=== PATIENT | male | born 1960 | race Caucasian/White ===

== ENCOUNTER 2018-07-19 12:34 | Emergency (ER) | payer SELFPAY ==
[~2018-07-19] VITALS: Ht 165.1 cm; Wt 81.6 kg
[2018-07-19 13:06] VITALS: Ht 165.1 cm; Wt 81.6 kg
[2018-07-19 16:42] VITALS: BP 112/78
== END 2018-07-19 16:42 | disposition home or self-care (01) ==
LOC: ED 12:34
DX: R40.4 Transient alteration of awareness (principal); Z98.890 Other specified postprocedural states

== ENCOUNTER 2018-08-05 20:30 | Inpatient (IN) | payer MEDICAID ==
[~2018-08-05] VITALS: Ht 165.1 cm; Wt 90.7 kg
[2018-08-05 21:59] LABS: BASOPHIL % 0.3 % (0-2); PLATELET COUNT 208 x10^3mcL (130-400); RED CELL DISTRIBUTION WIDTH 13.1 % (11.5-14.5)
[2018-08-05 22:08] LABS: CARBON DIOXIDE 27.5 mmol/L (21-32); CHLORIDE SERUM 104 mmol/L (98-107); GFR1 > 60 mL/min; GLUCOSE SERUM 106 mg/dL (74-106); POTASSIUM SERUM 3.1 mmol/L (3.5-5.1); SODIUM SERUM 141 mmol/L (136-145)
[2018-08-05 22:21] LABS: ALKALINE PHOSPHATASE 121 U/L (46-116); ALT/SGPT 22 U/L (16-63); AST/SGOT 32 U/L (15-37); FREE T4 0.93 ng/dL (0.76-1.46); TOTAL PROTEIN, SERUM 7.5 g/dL (6.4-8.2)
[2018-08-05 22:22] LABS: ALBUMIN 3.3 g/dL (3.4-5.0)
[2018-08-05 22:41] LABS: microscopic required? NO
[2018-08-05 22:50] LABS: UA SPECIFIC GRAVITY <=1.005 (1.005-1.035); urine erythrocyte NEGATIVE (NEGATIVE)
[2018-08-05 23:04] LABS: AMPHETAMINE QUAL UR NONE DETECTED (See below)
[2018-08-05 23:52] LABS: MAGNESIUM 2.1 mg/dL (1.8-2.4); PHOSPHOROUS 3.6 mg/dL (2.5-4.9)
[2018-08-05 23:56] LABS: CHOLESTEROL/HDL RATIO 2.2
[2018-08-06 00:08] VITALS: BP 139/94
[2018-08-06 00:11] VITALS: Ht 165.1 cm; Wt 90.7 kg
[2018-08-06 06:27] VITALS: BP 147/88
[2018-08-06 06:55] LABS: CALCIUM 7.8 mg/dL (8.5-10.1); CARBON DIOXIDE 22.6 mmol/L (21-32); CHLORIDE SERUM 108 mmol/L (98-107); CREATININE SERUM 0.8 mg/dL (0.7-1.3); GFR1 > 60 mL/min; GLUCOSE SERUM 91 mg/dL (74-106); POTASSIUM SERUM 3.4 mmol/L (3.5-5.1); SODIUM SERUM 140 mmol/L (136-145)
[2018-08-06 07:23] LABS: BASOPHIL % 0.4 % (0-2); PLATELET COUNT 194 x10^3mcL (130-400); RED CELL DISTRIBUTION WIDTH 13.2 % (11.5-14.5)
[2018-08-06 08:06] VITALS: BP 158/92
[2018-08-06 12:03] VITALS: BP 149/108
[2018-08-06 16:33] VITALS: BP 124/77
[2018-08-06 20:57] VITALS: BP 121/68
[2018-08-07 05:28] VITALS: BP 149/85
[2018-08-07 06:31] LABS: CALCIUM 8.4 mg/dL (8.5-10.1); CARBON DIOXIDE 26.2 mmol/L (21-32); CHLORIDE SERUM 107 mmol/L (98-107); GFR1 > 60 mL/min; GLUCOSE SERUM 94 mg/dL (74-106); MAGNESIUM 2.1 mg/dL (1.8-2.4); PHOSPHOROUS 2.6 mg/dL (2.5-4.9); POTASSIUM SERUM 3.8 mmol/L (3.5-5.1); SODIUM SERUM 141 mmol/L (136-145)
[2018-08-07 06:39] LABS: BASOPHIL % 0.3 % (0-2); PLATELET COUNT 213 x10^3mcL (130-400); RED CELL DISTRIBUTION WIDTH 12.5 % (11.5-14.5)
[2018-08-07 07:54] VITALS: BP 159/96
[2018-08-07 12:54] VITALS: BP 150/93
[2018-08-07 16:21] VITALS: BP 147/99
[2018-08-07 21:00] VITALS: BP 145/90
[2018-08-08 06:36] LABS: BASOPHIL % 0.3 % (0-2); PLATELET COUNT 190 x10^3mcL (130-400); RED CELL DISTRIBUTION WIDTH 12.9 % (11.5-14.5)
[2018-08-08 06:54] LABS: CALCIUM 8.5 mg/dL (8.5-10.1); CHLORIDE SERUM 101 mmol/L (98-107); CREATININE SERUM 0.9 mg/dL (0.7-1.3); GFR1 > 60 mL/min; GLUCOSE SERUM 96 mg/dL (74-106); PHOSPHOROUS 2.5 mg/dL (2.5-4.9); POTASSIUM SERUM 3.8 mmol/L (3.5-5.1); SODIUM SERUM 138 mmol/L (136-145)
[2018-08-08 07:36] VITALS: BP 128/81
[2018-08-08 12:07] VITALS: BP 130/78
[2018-08-08 16:02] VITALS: BP 133/87
[2018-08-08 21:14] VITALS: BP 126/82
[2018-08-09 05:13] VITALS: BP 120/74
[2018-08-09 08:39] VITALS: BP 118/81
[2018-08-09 13:05] VITALS: BP 121/73
[2018-08-09] MEDS ORDERED: LIPITOR80 MG PO (13:34)
[2018-08-09] MEDS ORDERED: CLOPIDOGREL75 M1 PO (13:34)
[2018-08-09] MEDS ORDERED: ECO81 PO (13:35)
[2018-08-09] MEDS ORDERED: METOPROLOL TART25 M1 PO (13:35)
[2018-08-09 17:43] VITALS: BP 136/91
[2018-08-09 20:14] VITALS: BP 117/79
[2018-08-10 06:46] LABS: BASOPHIL % 0.2 % (0-2); PLATELET COUNT 189 x10^3mcL (130-400); RED CELL DISTRIBUTION WIDTH 13.7 % (11.5-14.5)
[2018-08-10 06:52] LABS: CALCIUM 8.9 mg/dL (8.5-10.1); CARBON DIOXIDE 29.1 mmol/L (21-32); CHLORIDE SERUM 105 mmol/L (98-107); CREATININE SERUM 1.2 mg/dL (0.7-1.3); GFR1 > 60 mL/min; GLUCOSE SERUM 117 mg/dL (74-106); MAGNESIUM 2.3 mg/dL (1.8-2.4); PHOSPHOROUS 2.8 mg/dL (2.5-4.9); POTASSIUM SERUM 3.9 mmol/L (3.5-5.1); SODIUM SERUM 140 mmol/L (136-145)
[2018-08-10 06:55] VITALS: BP 124/79
[2018-08-10 08:37] VITALS: BP 117/76
[2018-08-10 14:32] VITALS: BP 117/76
[2018-08-10 16:17] VITALS: BP 103/72
[2018-08-10 20:27] VITALS: BP 114/73
[2018-08-11 04:58] VITALS: BP 116/79
[2018-08-11 09:04] VITALS: BP 109/76
[2018-08-11 16:15] VITALS: BP 107/74
[2018-08-11 20:49] VITALS: BP 111/76
[2018-08-12 05:24] VITALS: BP 116/72
[2018-08-12 09:48] VITALS: BP 111/84
[2018-08-12 19:00] VITALS: BP 123/81
[2018-08-12 21:12] VITALS: BP 103/73
[2018-08-13 05:05] VITALS: BP 101/63
[2018-08-13 08:56] VITALS: BP 109/73
[2018-08-13 16:16] VITALS: BP 118/81
[2018-08-13 22:03] VITALS: BP 117/81
[2018-08-14 06:18] VITALS: BP 118/80
[2018-08-14 06:37] VITALS: BP 121/76
[2018-08-14 08:35] VITALS: BP 125/80
[2018-08-14 11:46] LABS: BASOPHIL % 0.6 % (0-2); PLATELET COUNT 247 x10^3mcL (130-400); RED CELL DISTRIBUTION WIDTH 12.7 % (11.5-14.5)
[2018-08-14 11:58] LABS: CALCIUM 8.5 mg/dL (8.5-10.1); CHLORIDE SERUM 107 mmol/L (98-107); CREATININE SERUM 1.1 mg/dL (0.7-1.3); GFR1 > 60 mL/min; GLUCOSE SERUM 119 mg/dL (74-106); MAGNESIUM 2.1 mg/dL (1.8-2.4); PHOSPHOROUS 3.5 mg/dL (2.5-4.9); POTASSIUM SERUM 3.8 mmol/L (3.5-5.1); SODIUM SERUM 140 mmol/L (136-145)
[2018-08-14 17:15] VITALS: BP 118/74
[2018-08-14 20:58] VITALS: BP 101/71
[2018-08-15 05:19] VITALS: BP 126/79
[2018-08-15 17:25] VITALS: BP 113/74
[2018-08-15 20:34] VITALS: BP 127/75
[2018-08-16 05:22] VITALS: BP 105/44
[2018-08-16 05:25] VITALS: BP 113/79
[2018-08-16 08:18] VITALS: BP 139/91
[2018-08-16 16:15] VITALS: BP 102/68
[2018-08-16 20:14] VITALS: BP 121/86
[2018-08-17 05:15] VITALS: BP 122/84
[2018-08-17 08:13] VITALS: BP 142/96
[2018-08-17 16:40] VITALS: BP 102/66
[2018-08-17 20:34] VITALS: BP 100/66
[2018-08-18 05:42] VITALS: BP 113/70
[2018-08-18 08:30] VITALS: BP 105/80
[2018-08-18 17:10] VITALS: BP 120/72
[2018-08-18 21:39] VITALS: BP 111/70
[2018-08-19 05:46] VITALS: BP 120/77
[2018-08-19 08:39] VITALS: BP 117/78
[2018-08-19 16:50] VITALS: BP 127/79
[2018-08-19 20:42] VITALS: BP 100/71
[2018-08-20 04:46] VITALS: BP 127/79
[2018-08-20 08:28] VITALS: BP 105/77
[2018-08-20 16:30] VITALS: BP 128/85
[2018-08-20 19:43] VITALS: BP 124/77
[2018-08-21 04:45] VITALS: BP 115/72
[2018-08-21 09:12] VITALS: BP 115/75
[2018-08-21 17:26] VITALS: BP 112/73
[2018-08-21 20:21] VITALS: BP 103/67
[2018-08-22 04:38] VITALS: BP 104/71
[2018-08-22 07:45] VITALS: BP 118/72
[2018-08-22 11:50] VITALS: BP 108/69
[2018-08-22 16:48] VITALS: BP 110/68
[2018-08-22 20:49] VITALS: BP 101/72
[2018-08-23 05:06] VITALS: BP 124/83
[2018-08-23 09:04] VITALS: BP 115/87
[2018-08-23 17:35] VITALS: BP 99/66
[2018-08-23 20:38] VITALS: BP 103/70
[2018-08-24 06:00] VITALS: BP 129/80
[2018-08-24 09:20] VITALS: BP 112/73
[2018-08-24 16:36] VITALS: BP 118/77
[2018-08-24 21:33] VITALS: BP 137/79
[2018-08-25] VITALS (8 sets, daily range): BP systolic 106–137; BP diastolic 51–81
[2018-08-26 04:48] VITALS: BP 115/77
[2018-08-26 08:32] VITALS: BP 107/67
[2018-08-26 13:31] VITALS: BP 114/69
[2018-08-26 16:54] VITALS: BP 109/64
[2018-08-26 21:38] VITALS: BP 131/70
[2018-08-27 05:40] VITALS: BP 114/75
[2018-08-27 08:54] VITALS: BP 117/80
[2018-08-27 17:48] VITALS: BP 116/71
[2018-08-27 20:44] VITALS: BP 149/77
[2018-08-28 04:53] VITALS: BP 122/84
[2018-08-28 08:12] VITALS: BP 160/91
[2018-08-28 17:30] VITALS: BP 123/84
[2018-08-28 20:20] VITALS: BP 117/74
[2018-08-29 05:29] VITALS: BP 137/84
[2018-08-29 08:43] VITALS: BP 129/92
[2018-08-29 16:42] VITALS: BP 129/76
[2018-08-29 20:55] VITALS: BP 126/79
[2018-08-30 05:13] VITALS: BP 106/70
[2018-08-30 08:20] VITALS: BP 130/80
[2018-08-30 16:13] VITALS: BP 114/79
[2018-08-30 20:11] VITALS: BP 126/76
[2018-08-31 04:32] VITALS: BP 123/84
[2018-08-31 09:40] VITALS: BP 111/76
[2018-08-31 17:30] VITALS: BP 127/73
[2018-08-31 22:56] VITALS: BP 131/83
[2018-09-01 04:46] VITALS: BP 114/78
[2018-09-01 09:53] VITALS: BP 127/86
[2018-09-01 16:58] VITALS: BP 125/75
[2018-09-01 21:34] VITALS: BP 113/82
[2018-09-02 05:37] VITALS: BP 136/79
[2018-09-02 10:26] VITALS: BP 125/80
[2018-09-02 17:14] VITALS: BP 126/72; BP 135/60
[2018-09-02 21:10] VITALS: BP 115/80
[2018-09-03 04:51] VITALS: BP 129/92
[2018-09-03 08:33] VITALS: BP 133/90
[2018-09-03 12:20] VITALS: BP 139/88
[2018-09-03 16:08] VITALS: BP 122/80
[2018-09-03 21:29] VITALS: BP 136/86
[2018-09-04 06:05] VITALS: BP 128/82
[2018-09-04 08:05] VITALS: BP 143/90
[2018-09-04 13:14] VITALS: BP 130/84
[2018-09-04 16:27] VITALS: BP 125/89
[2018-09-04 20:12] VITALS: BP 112/78
[2018-09-05 06:13] VITALS: BP 134/73
[2018-09-05 10:27] VITALS: BP 123/78
[2018-09-05 16:30] VITALS: BP 115/75
[2018-09-05 21:14] VITALS: BP 114/72
[2018-09-06 05:57] VITALS: BP 121/79
[2018-09-06 08:30] VITALS: BP 126/83
[2018-09-06 17:15] VITALS: BP 118/76
[2018-09-06 20:43] VITALS: BP 113/72
[2018-09-07 05:24] VITALS: BP 123/77
[2018-09-07 08:50] VITALS: BP 123/81
[2018-09-07 16:26] VITALS: BP 117/77
[2018-09-07 20:49] VITALS: BP 119/85
[2018-09-08 04:43] VITALS: BP 132/84
[2018-09-08 08:14] VITALS: BP 129/68
[2018-09-08 09:10] VITALS: BP 112/78
[2018-09-08 16:53] VITALS: BP 114/73
[2018-09-08 21:36] VITALS: BP 142/86
[2018-09-09 05:30] VITALS: BP 139/97
[2018-09-09 08:06] VITALS: BP 136/87
[2018-09-09 12:54] VITALS: BP 116/80
[2018-09-09 18:23] VITALS: BP 135/82
[2018-09-09 21:04] VITALS: BP 113/73
[2018-09-10 05:20] VITALS: BP 133/91
[2018-09-10 09:53] VITALS: BP 121/87
[2018-09-10 17:00] VITALS: BP 126/80
[2018-09-10 21:37] VITALS: BP 116/81
[2018-09-11 05:41] VITALS: BP 120/78
[2018-09-11 08:56] VITALS: BP 117/81
[2018-09-11 17:53] VITALS: BP 122/80
[2018-09-11 20:14] VITALS: BP 112/73
[2018-09-12 04:50] VITALS: BP 120/75
[2018-09-12 09:10] VITALS: BP 123/80
[2018-09-12 16:45] VITALS: BP 121/80
[2018-09-12 20:55] VITALS: BP 118/78
[2018-09-13 04:40] VITALS: BP 132/80
[2018-09-13 09:04] VITALS: BP 129/89
[2018-09-13 16:30] VITALS: BP 118/81
[2018-09-13 21:37] VITALS: BP 132/76
[2018-09-14 05:24] VITALS: BP 140/84
[2018-09-14 09:10] VITALS: BP 121/82
[2018-09-14 16:46] VITALS: BP 116/71
[2018-09-14 21:02] VITALS: BP 136/75
[2018-09-15 05:29] VITALS: BP 130/74
[2018-09-15 09:36] VITALS: BP 116/73
[2018-09-15 17:34] VITALS: BP 109/74
[2018-09-15 21:03] VITALS: BP 120/82
[2018-09-16 05:03] VITALS: BP 124/80
[2018-09-16 10:03] VITALS: BP 125/80
[2018-09-16 17:39] VITALS: BP 113/74
[2018-09-16 20:09] VITALS: BP 113/78
[2018-09-17 05:42] VITALS: BP 115/79
[2018-09-17 08:16] VITALS: BP 114/76
[2018-09-17 17:00] VITALS: BP 107/73
[2018-09-17 21:27] VITALS: BP 131/74
[2018-09-18 05:24] VITALS: BP 107/73
[2018-09-18 10:53] VITALS: BP 101/69
[2018-09-18 18:57] VITALS: BP 119/79
[2018-09-18 21:01] VITALS: BP 126/83
[2018-09-19 06:19] VITALS: BP 124/86
[2018-09-19 08:13] VITALS: BP 112/80
[2018-09-19 12:31] VITALS: BP 120/74
[2018-09-19 16:43] VITALS: BP 115/76
[2018-09-19 21:20] VITALS: BP 125/72
[2018-09-20 05:51] VITALS: BP 130/81
[2018-09-20 09:29] VITALS: BP 112/81
[2018-09-20 17:37] VITALS: BP 122/79
[2018-09-20 20:45] VITALS: BP 112/71
[2018-09-21 04:55] VITALS: BP 117/88
[2018-09-21 09:23] VITALS: BP 127/88
[2018-09-21 17:04] VITALS: BP 113/72
[2018-09-21 20:58] VITALS: BP 119/81
[2018-09-22 06:01] VITALS: BP 126/88
[2018-09-22 10:18] VITALS: BP 120/83
[2018-09-22 16:53] VITALS: BP 93/53
[2018-09-22 20:35] VITALS: BP 123/81
[2018-09-23 05:29] VITALS: BP 123/87
[2018-09-23 09:34] VITALS: BP 117/79
[2018-09-23 17:48] VITALS: BP 117/85
[2018-09-23 20:42] VITALS: BP 106/72
[2018-09-24 05:13] VITALS: BP 124/76
[2018-09-24 08:30] VITALS: BP 107/67
[2018-09-24 17:14] VITALS: BP 112/76
[2018-09-24 21:13] VITALS: BP 120/83
[2018-09-25 04:22] VITALS: BP 110/74
[2018-09-25 08:32] VITALS: BP 123/89
[2018-09-25 17:00] VITALS: BP 123/84
[2018-09-25 21:31] VITALS: BP 119/73
[2018-09-26 06:11] VITALS: BP 119/80
[2018-09-26 10:05] VITALS: BP 123/84
[2018-09-26 17:06] VITALS: BP 117/78
[2018-09-26 20:55] VITALS: BP 116/73
[2018-09-27 05:07] VITALS: BP 126/83
[2018-09-27 08:45] VITALS: BP 130/88
[2018-09-27 17:49] VITALS: BP 112/79
[2018-09-27 21:14] VITALS: BP 112/75
[2018-09-28 05:52] VITALS: BP 136/89
[2018-09-28 08:45] VITALS: BP 121/82
[2018-09-28 18:48] VITALS: BP 121/83
[2018-09-28 21:33] VITALS: BP 107/72
[2018-09-29 05:19] VITALS: BP 113/89
[2018-09-29 07:28] VITALS: BP 126/81
[2018-09-29 17:25] VITALS: BP 101/75
[2018-09-29 20:32] VITALS: BP 111/71
[2018-09-30 05:41] VITALS: BP 122/84
[2018-09-30 09:49] VITALS: BP 116/81
[2018-09-30 13:26] VITALS: BP 152/84
[2018-09-30 18:09] VITALS: BP 121/79
[2018-09-30 20:51] VITALS: BP 118/81
[2018-10-01 05:28] VITALS: BP 128/84
[2018-10-01 08:18] VITALS: BP 114/83
[2018-10-01 16:21] VITALS: BP 119/70
[2018-10-01 21:22] VITALS: BP 118/77
[2018-10-02 05:53] VITALS: BP 129/78
[2018-10-02 08:27] VITALS: BP 116/84
[2018-10-02 12:11] VITALS: BP 120/80
[2018-10-02 16:20] VITALS: BP 112/80
[2018-10-02 20:43] VITALS: BP 109/71
[2018-10-03 05:26] VITALS: BP 122/75
[2018-10-03 08:55] VITALS: BP 112/77
[2018-10-03 16:47] VITALS: BP 126/80
[2018-10-03 23:32] VITALS: BP 126/74
[2018-10-04 05:43] VITALS: BP 127/67
[2018-10-04 09:35] VITALS: BP 132/86
[2018-10-04 17:01] VITALS: BP 109/73
[2018-10-04 21:12] VITALS: BP 145/93
[2018-10-05 05:09] VITALS: BP 133/95
[2018-10-05 09:32] VITALS: BP 128/80
[2018-10-05 17:49] VITALS: BP 113/83
[2018-10-05 21:39] VITALS: BP 108/78
[2018-10-06 04:53] VITALS: BP 122/80
[2018-10-06 10:47] VITALS: BP 129/87
[2018-10-06 19:17] VITALS: BP 128/84
[2018-10-06 21:03] VITALS: BP 112/77
[2018-10-07 05:05] VITALS: BP 126/83
[2018-10-07 08:37] VITALS: BP 130/91
[2018-10-07 12:09] VITALS: BP 133/88
[2018-10-07 15:54] VITALS: BP 130/79
[2018-10-07 22:03] VITALS: BP 116/87
[2018-10-08 05:16] VITALS: BP 135/90
[2018-10-08 08:16] VITALS: BP 135/97
[2018-10-08 16:55] VITALS: BP 139/94
[2018-10-08 21:03] VITALS: BP 137/95
[2018-10-09 06:06] VITALS: BP 135/89
[2018-10-09 09:20] VITALS: BP 138/83
[2018-10-09 17:37] VITALS: BP 114/83
[2018-10-09 21:16] VITALS: BP 112/83
[2018-10-10 05:14] VITALS: BP 116/74
[2018-10-10 08:50] VITALS: BP 133/94
[2018-10-10 17:22] VITALS: BP 138/92
[2018-10-10 20:41] VITALS: BP 131/83
[2018-10-11 05:30] VITALS: BP 117/77
[2018-10-11 10:06] VITALS: BP 110/79
[2018-10-11 17:11] VITALS: BP 118/74
[2018-10-11 20:14] VITALS: BP 121/79
[2018-10-12 05:01] VITALS: BP 114/81; BP 175/93
[2018-10-12 10:14] VITALS: BP 101/72
[2018-10-12 18:31] VITALS: BP 121/88
[2018-10-12 21:22] VITALS: BP 119/79
[2018-10-13 05:48] VITALS: BP 110/78
[2018-10-13 09:52] VITALS: BP 100/70
[2018-10-13 17:29] VITALS: BP 107/81
[2018-10-13 20:48] VITALS: BP 120/81
[2018-10-14 05:02] VITALS: BP 129/80
[2018-10-14 08:30] VITALS: BP 119/80
[2018-10-14 17:00] VITALS: BP 129/83
[2018-10-14 20:49] VITALS: BP 122/84
[2018-10-15 05:03] VITALS: BP 113/76
[2018-10-15 08:05] VITALS: BP 121/77
[2018-10-15 12:06] VITALS: BP 119/81
[2018-10-15 16:15] VITALS: BP 126/78
[2018-10-15 21:02] VITALS: BP 123/80
[2018-10-16 05:23] VITALS: BP 106/73
[2018-10-16 08:14] VITALS: BP 104/73
[2018-10-16 16:40] VITALS: BP 121/68
[2018-10-17 05:46] VITALS: BP 121/70
[2018-10-17 07:53] VITALS: BP 110/79
[2018-10-17 12:10] VITALS: BP 121/77
[2018-10-17 17:01] VITALS: BP 131/84
[2018-10-17 20:33] VITALS: BP 130/79
[2018-10-18 05:58] VITALS: BP 132/76
[2018-10-18 08:51] VITALS: BP 108/74
[2018-10-18 17:38] VITALS: BP 114/75
[2018-10-18 20:48] VITALS: BP 99/72
[2018-10-19 05:28] VITALS: BP 117/81
[2018-10-19 08:56] VITALS: BP 110/79
[2018-10-19 16:36] VITALS: BP 126/79
[2018-10-19 21:30] VITALS: BP 116/79
[2018-10-20 05:09] VITALS: BP 94/68
[2018-10-20 09:33] VITALS: BP 108/74
[2018-10-20 16:39] VITALS: BP 134/86
[2018-10-20 20:25] VITALS: BP 123/76
[2018-10-21 05:13] VITALS: BP 97/66
[2018-10-21 09:57] VITALS: BP 103/70
[2018-10-21 16:12] VITALS: BP 113/79
[2018-10-21 21:13] VITALS: BP 125/89
[2018-10-22 05:26] VITALS: BP 124/79
[2018-10-22 07:38] VITALS: BP 115/86
[2018-10-22 17:00] VITALS: BP 118/72
[2018-10-22 20:44] VITALS: BP 124/81
[2018-10-23 05:27] VITALS: BP 110/75
[2018-10-23 05:29] VITALS: BP 106/69
[2018-10-23 09:30] VITALS: BP 119/80
[2018-10-23 17:44] VITALS: BP 110/77
[2018-10-23 20:13] VITALS: BP 105/73
[2018-10-24 04:55] VITALS: BP 112/70
[2018-10-24 08:58] VITALS: BP 99/72
[2018-10-24 16:46] VITALS: BP 126/79
[2018-10-24 21:13] VITALS: BP 118/83
[2018-10-25 05:44] VITALS: BP 139/82
[2018-10-25 09:00] VITALS: BP 109/68
[2018-10-25 16:49] VITALS: BP 127/79
[2018-10-25 20:57] VITALS: BP 123/69
[2018-10-26 05:18] VITALS: BP 111/78
[2018-10-26 08:30] VITALS: BP 104/74
[2018-10-26 16:42] VITALS: BP 121/80
[2018-10-26 21:06] VITALS: BP 105/70
[2018-10-27 05:19] VITALS: BP 109/74
[2018-10-27 08:26] VITALS: BP 118/77
[2018-10-27 17:28] VITALS: BP 120/76
[2018-10-27 21:32] VITALS: BP 133/73
[2018-10-28 06:27] VITALS: BP 120/80
[2018-10-28 08:53] VITALS: BP 105/78
[2018-10-28 17:59] VITALS: BP 123/73
[2018-10-28 21:02] VITALS: BP 137/76
[2018-10-29 05:29] VITALS: BP 109/65
[2018-10-29 08:28] VITALS: BP 125/78
[2018-10-29 11:57] VITALS: BP 110/68
[2018-10-29 16:31] VITALS: BP 118/60
[2018-10-29 22:45] VITALS: BP 141/89
[2018-10-30 05:04] VITALS: BP 121/78
[2018-10-30 10:39] VITALS: BP 102/71
[2018-10-30 16:40] VITALS: BP 117/69
[2018-10-30 20:33] VITALS: BP 116/72
[2018-10-31 04:45] VITALS: BP 108/74
[2018-10-31 08:06] VITALS: BP 126/85
[2018-10-31 12:22] VITALS: BP 115/77
[2018-10-31 16:56] VITALS: BP 113/79
[2018-10-31 20:34] VITALS: BP 123/76
[2018-11-01 06:31] VITALS: BP 124/82
[2018-11-01 17:04] VITALS: BP 133/77
[2018-11-01 20:36] VITALS: BP 117/84
[2018-11-02 05:23] VITALS: BP 117/76
[2018-11-02 09:44] VITALS: BP 114/76
[2018-11-02 17:20] VITALS: BP 109/74
[2018-11-02 21:29] VITALS: BP 140/84
[2018-11-03 05:59] VITALS: BP 128/63
[2018-11-03 08:10] VITALS: BP 119/79
[2018-11-03 11:54] VITALS: BP 123/80
[2018-11-03 16:08] VITALS: BP 121/67
[2018-11-03 20:43] VITALS: BP 120/83
[2018-11-04 05:37] VITALS: BP 118/74
[2018-11-04 09:00] VITALS: BP 123/81
[2018-11-04 16:13] VITALS: BP 107/63
[2018-11-04 20:41] VITALS: BP 103/70
[2018-11-05 05:40] VITALS: BP 117/80
[2018-11-05 09:25] VITALS: BP 126/89
[2018-11-05 09:26] VITALS: BP 126/60
[2018-11-05 16:30] VITALS: BP 116/73
[2018-11-05 20:29] VITALS: BP 117/78
[2018-11-06 05:07] VITALS: BP 116/70
[2018-11-06 09:13] VITALS: BP 113/76
[2018-11-06 17:21] VITALS: BP 115/83
[2018-11-06 20:54] VITALS: BP 117/74
[2018-11-07 06:01] VITALS: BP 108/62
[2018-11-07 09:00] VITALS: BP 108/76
[2018-11-07 17:48] VITALS: BP 135/93
[2018-11-07 20:35] VITALS: BP 119/86
[2018-11-08 06:04] VITALS: BP 114/75
[2018-11-08 09:37] VITALS: BP 126/79
[2018-11-08 16:45] VITALS: BP 124/85
[2018-11-08 21:10] VITALS: BP 131/83
[2018-11-09 05:24] VITALS: BP 100/59
[2018-11-09 10:01] VITALS: BP 121/58
[2018-11-09 18:18] VITALS: BP 136/86
[2018-11-09 21:16] VITALS: BP 121/79
[2018-11-10 05:46] VITALS: BP 112/71
[2018-11-10 08:30] VITALS: BP 129/84
[2018-11-10 16:55] VITALS: BP 130/87
[2018-11-10 21:24] VITALS: BP 131/83
[2018-11-11 06:29] VITALS: BP 115/79
[2018-11-11 08:00] VITALS: BP 111/78
[2018-11-11 17:51] VITALS: BP 122/86
[2018-11-11 20:52] VITALS: BP 131/97
[2018-11-12 05:19] VITALS: BP 120/85
[2018-11-12 09:00] VITALS: BP 103/70
[2018-11-12 15:38] VITALS: BP 127/85
[2018-11-12 20:47] VITALS: BP 118/82
[2018-11-13 04:53] VITALS: BP 108/71
[2018-11-13 07:42] VITALS: BP 143/73
[2018-11-13 17:27] VITALS: BP 114/65
[2018-11-13 21:08] VITALS: BP 147/76
[2018-11-14 05:00] VITALS: BP 124/88
[2018-11-14 09:27] VITALS: BP 103/71
[2018-11-14 17:21] VITALS: BP 95/66
[2018-11-14 20:09] VITALS: BP 114/72
[2018-11-15 05:09] VITALS: BP 144/69
[2018-11-15 08:46] VITALS: BP 116/79
[2018-11-15 16:43] VITALS: BP 109/70
[2018-11-15 21:20] VITALS: BP 114/73
[2018-11-16 05:42] VITALS: BP 108/64
[2018-11-16 09:30] VITALS: BP 114/78
[2018-11-16 17:35] VITALS: BP 115/84
[2018-11-16 21:17] VITALS: BP 109/66
[2018-11-17 04:59] VITALS: BP 116/69
[2018-11-17 09:58] VITALS: BP 113/68
[2018-11-17 16:15] VITALS: BP 117/72
[2018-11-17 21:08] VITALS: BP 119/72
[2018-11-18 05:57] VITALS: BP 114/77
[2018-11-18 08:20] VITALS: BP 120/88
[2018-11-18 12:02] VITALS: BP 118/73
[2018-11-18 17:57] VITALS: BP 110/74
[2018-11-18 20:57] VITALS: BP 132/86
[2018-11-19 06:04] VITALS: BP 128/87
[2018-11-19 07:54] VITALS: BP 119/80
[2018-11-19 16:17] VITALS: BP 114/83
[2018-11-19 20:57] VITALS: BP 134/83
[2018-11-20 05:47] VITALS: BP 121/77
[2018-11-20 08:59] VITALS: BP 112/84
[2018-11-20 16:55] VITALS: BP 118/79
[2018-11-20 21:01] VITALS: BP 104/67
[2018-11-21 05:30] VITALS: BP 126/77
[2018-11-21 08:48] VITALS: BP 124/82
[2018-11-21 17:02] VITALS: BP 132/81
[2018-11-21 20:50] VITALS: BP 123/81
[2018-11-22 05:23] VITALS: BP 111/80
[2018-11-22 09:00] VITALS: BP 109/81
[2018-11-22 17:00] VITALS: BP 105/69
[2018-11-22 21:34] VITALS: BP 120/76
[2018-11-23 06:38] VITALS: BP 109/63
[2018-11-23 08:20] VITALS: BP 108/77
[2018-11-23 12:36] VITALS: BP 112/74
[2018-11-23 16:58] VITALS: BP 112/62
[2018-11-23 21:11] VITALS: BP 134/84
[2018-11-24 05:35] VITALS: BP 135/91
[2018-11-24 09:51] VITALS: BP 112/68
[2018-11-24 17:18] VITALS: BP 102/72
[2018-11-24 20:47] VITALS: BP 117/73
[2018-11-25 05:29] VITALS: BP 104/65
[2018-11-25 09:43] VITALS: BP 106/61
[2018-11-25 16:40] VITALS: BP 110/69
[2018-11-25 20:40] VITALS: BP 108/69
[2018-11-26 05:35] VITALS: BP 111/72
[2018-11-26 08:35] VITALS: BP 113/73
[2018-11-26 12:20] VITALS: BP 117/68
[2018-11-26 16:09] VITALS: BP 121/75
[2018-11-26 21:27] VITALS: BP 115/71
[2018-11-27 05:54] VITALS: BP 116/76
[2018-11-27 08:02] VITALS: BP 127/78
[2018-11-27 12:16] VITALS: BP 119/71
[2018-11-27 16:39] VITALS: BP 116/65
[2018-11-27 21:41] VITALS: BP 118/76
[2018-11-28 05:11] VITALS: BP 123/84
[2018-11-28 08:52] VITALS: BP 130/60
[2018-11-28 17:50] VITALS: BP 127/85
[2018-11-28 20:59] VITALS: BP 116/88
[2018-11-29 04:50] VITALS: BP 92/58
[2018-11-29 08:50] VITALS: BP 106/60
[2018-11-29 17:00] VITALS: BP 108/59
[2018-11-29 21:12] VITALS: BP 113/75
[2018-11-30 05:43] VITALS: BP 100/56
[2018-11-30 09:40] VITALS: BP 118/89
[2018-11-30 17:30] VITALS: BP 109/75
[2018-11-30 21:41] VITALS: BP 114/81
[2018-12-01 05:44] VITALS: BP 122/72
[2018-12-01 09:04] VITALS: BP 118/73
[2018-12-01 16:14] VITALS: BP 114/79
[2018-12-01 21:33] VITALS: BP 130/88
[2018-12-02 05:46] VITALS: BP 119/77
[2018-12-02 09:01] VITALS: BP 114/72
[2018-12-02 17:25] VITALS: BP 119/72
[2018-12-02 20:45] VITALS: BP 106/66
[2018-12-03 05:47] VITALS: BP 108/68
[2018-12-03 08:52] VITALS: BP 121/76
[2018-12-03 17:10] VITALS: BP 117/68
[2018-12-03 21:50] VITALS: BP 120/71
[2018-12-04 05:33] VITALS: BP 122/73
[2018-12-04 09:19] VITALS: BP 122/77
[2018-12-04 17:31] VITALS: BP 107/64
[2018-12-04 21:16] VITALS: BP 101/63
[2018-12-05 05:55] VITALS: BP 97/54
[2018-12-05 09:57] VITALS: BP 110/70
[2018-12-05 17:40] VITALS: BP 107/49
[2018-12-05 21:12] VITALS: BP 116/73
[2018-12-06 05:26] VITALS: BP 120/72
[2018-12-06 09:49] VITALS: BP 118/73
[2018-12-06 17:11] VITALS: BP 123/81
[2018-12-06 20:55] VITALS: BP 113/67
[2018-12-07 06:05] VITALS: BP 125/83
[2018-12-07 08:58] VITALS: BP 109/82
[2018-12-07 18:38] VITALS: BP 129/87
[2018-12-07 21:26] VITALS: BP 137/94
[2018-12-08 05:57] VITALS: BP 121/73
[2018-12-08 08:00] VITALS: BP 109/76
[2018-12-08 16:10] VITALS: BP 110/72
[2018-12-08 20:41] VITALS: BP 108/73
[2018-12-09 05:41] VITALS: BP 114/72
[2018-12-09 09:43] VITALS: BP 112/79
[2018-12-09 17:00] VITALS: BP 111/81
[2018-12-09 20:59] VITALS: BP 114/79
[2018-12-10 05:55] VITALS: BP 127/70
[2018-12-10 09:01] VITALS: BP 119/86
[2018-12-10 18:07] VITALS: BP 121/68
[2018-12-10 20:19] VITALS: BP 121/90
[2018-12-11 05:00] VITALS: BP 113/81
[2018-12-11 09:23] VITALS: BP 134/85
[2018-12-11 17:48] VITALS: BP 120/60
[2018-12-11 20:33] VITALS: BP 96/62
[2018-12-12 05:18] VITALS: BP 108/75
[2018-12-12 10:19] VITALS: BP 104/74
[2018-12-12 16:49] VITALS: BP 106/77
[2018-12-12 20:27] VITALS: BP 120/83
[2018-12-13 05:32] VITALS: BP 108/74
[2018-12-13 09:45] VITALS: BP 101/78
[2018-12-13 17:34] VITALS: BP 113/78
[2018-12-13 20:31] VITALS: BP 136/89
[2018-12-14 05:05] VITALS: BP 140/93
[2018-12-14 09:00] VITALS: BP 124/88
[2018-12-14 17:00] VITALS: BP 121/82
[2018-12-14 20:37] VITALS: BP 103/70
[2018-12-15 06:11] VITALS: BP 130/98
[2018-12-15 08:28] VITALS: BP 109/77
[2018-12-15 12:33] VITALS: BP 111/68
[2018-12-15 16:27] VITALS: BP 107/70
[2018-12-15 20:49] VITALS: BP 107/80
[2018-12-16 05:48] VITALS: BP 128/81
[2018-12-16 08:05] VITALS: BP 108/76
[2018-12-16 12:08] VITALS: BP 113/79
[2018-12-16 16:22] VITALS: BP 105/73
[2018-12-16 20:47] VITALS: BP 120/79
[2018-12-17 05:14] VITALS: BP 130/84
[2018-12-17 15:50] VITALS: BP 138/90
[2018-12-17 21:03] VITALS: BP 108/76
[2018-12-18 05:48] VITALS: BP 117/75
[2018-12-18 08:56] VITALS: BP 112/81
[2018-12-18 17:37] VITALS: BP 98/63
[2018-12-18 21:05] VITALS: BP 115/76
[2018-12-19 05:06] VITALS: BP 116/80
[2018-12-19 16:50] VITALS: BP 112/80
[2018-12-19 20:29] VITALS: BP 122/77
[2018-12-20 04:56] VITALS: BP 121/75
[2018-12-20 09:00] VITALS: BP 115/74
[2018-12-20 16:55] VITALS: BP 102/74
[2018-12-20 21:52] VITALS: BP 105/71
[2018-12-21 06:12] VITALS: BP 123/86
[2018-12-21 10:06] VITALS: BP 124/78
[2018-12-21 16:18] VITALS: BP 111/68
[2018-12-21 22:08] VITALS: BP 109/74
[2018-12-22 05:58] VITALS: BP 124/72
[2018-12-22 07:25] VITALS: BP 116/79
[2018-12-22 15:40] VITALS: BP 109/91
[2018-12-22 21:04] VITALS: BP 97/63
[2018-12-23 06:07] VITALS: BP 121/82
[2018-12-23 10:24] VITALS: BP 104/71
[2018-12-23 19:03] VITALS: BP 114/64
[2018-12-23 21:23] VITALS: BP 132/76
[2018-12-24 05:32] VITALS: BP 113/74
[2018-12-24 09:00] VITALS: BP 108/68
[2018-12-24 16:11] VITALS: BP 100/71
[2018-12-24 21:27] VITALS: BP 109/74
[2018-12-25 05:14] VITALS: BP 114/79
[2018-12-25 10:33] VITALS: BP 117/80
[2018-12-25 18:46] VITALS: BP 103/66
[2018-12-25 20:53] VITALS: BP 110/67
[2018-12-26 05:53] VITALS: BP 121/68
[2018-12-26 11:00] VITALS: BP 120/81
[2018-12-26 18:29] VITALS: BP 117/83
[2018-12-26 19:22] VITALS: BP 117/73
[2018-12-27 06:34] VITALS: BP 151/83
[2018-12-27 16:57] VITALS: BP 128/73
[2018-12-27 21:08] VITALS: BP 117/64
[2018-12-28 05:53] VITALS: BP 122/81
[2018-12-28 09:08] VITALS: BP 133/80
[2018-12-28 17:18] VITALS: BP 142/71
[2018-12-28 21:13] VITALS: BP 117/71
[2018-12-29 05:30] VITALS: BP 120/86
[2018-12-29 09:59] VITALS: BP 107/82
[2018-12-29 18:46] VITALS: BP 120/76
[2018-12-29 21:11] VITALS: BP 116/74
[2018-12-30 06:04] VITALS: BP 111/81
[2018-12-30 09:06] VITALS: BP 118/87
[2018-12-30 18:02] VITALS: BP 140/85
[2018-12-31 07:35] VITALS: BP 112/81
[2018-12-31 16:24] VITALS: BP 115/72
[2018-12-31 21:26] VITALS: BP 107/60
[2019-01-01 06:06] VITALS: BP 123/78
[2019-01-01 09:35] VITALS: BP 109/77
[2019-01-01 16:59] VITALS: BP 115/69
[2019-01-01 21:10] VITALS: BP 114/71
[2019-01-02 03:54] VITALS: BP 107/62
[2019-01-02 09:45] VITALS: BP 121/82
[2019-01-02 16:45] VITALS: BP 124/76
[2019-01-02 20:28] VITALS: BP 123/80
[2019-01-03 06:11] VITALS: BP 122/79
[2019-01-03 08:28] VITALS: BP 141/95
[2019-01-03 16:15] VITALS: BP 119/77
[2019-01-03 21:27] VITALS: BP 96/53
[2019-01-04 05:18] VITALS: BP 128/86
[2019-01-04 08:04] VITALS: BP 124/80
[2019-01-04 08:36] VITALS: BP 117/79
[2019-01-04 12:17] VITALS: BP 129/78
[2019-01-04 16:03] VITALS: BP 112/76
[2019-01-04 21:08] VITALS: BP 111/75
[2019-01-05 06:02] VITALS: BP 115/72
[2019-01-05 08:58] VITALS: BP 134/84
[2019-01-05 17:04] VITALS: BP 137/71
[2019-01-05 20:49] VITALS: BP 108/68
[2019-01-06 05:10] VITALS: BP 115/71
[2019-01-06 10:00] VITALS: BP 127/79
[2019-01-06 18:14] VITALS: BP 137/76
[2019-01-06 21:41] VITALS: BP 110/68
[2019-01-07 05:39] VITALS: BP 119/82
[2019-01-07 08:50] VITALS: BP 111/72
[2019-01-07 16:53] VITALS: BP 125/72
[2019-01-07 21:06] VITALS: BP 100/65
[2019-01-08 05:36] VITALS: BP 141/87
[2019-01-08 09:00] VITALS: BP 142/94
[2019-01-08 17:04] VITALS: BP 120/76
[2019-01-08 21:10] VITALS: BP 125/75
[2019-01-09 05:24] VITALS: BP 107/69
[2019-01-09 08:01] VITALS: BP 115/81
[2019-01-09 12:18] VITALS: BP 123/80
[2019-01-09 16:48] VITALS: BP 120/77
[2019-01-09 20:52] VITALS: BP 115/68
[2019-01-10 05:44] VITALS: BP 98/68
[2019-01-10 09:44] VITALS: BP 106/72
[2019-01-10 17:44] VITALS: BP 115/72
[2019-01-10 20:24] VITALS: BP 108/72
[2019-01-11 06:32] VITALS: BP 106/71
[2019-01-11 08:51] VITALS: BP 111/69
[2019-01-11 17:23] VITALS: BP 121/70
[2019-01-11 21:20] VITALS: BP 127/63
[2019-01-12 05:29] VITALS: BP 124/81
[2019-01-12 09:05] VITALS: BP 121/78
[2019-01-12 16:48] VITALS: BP 122/87
[2019-01-12 20:34] VITALS: BP 138/88
[2019-01-13 05:28] VITALS: BP 105/75
[2019-01-13 08:10] VITALS: BP 113/72
[2019-01-13 16:52] VITALS: BP 116/72
[2019-01-13 20:30] VITALS: BP 119/76
[2019-01-14 05:28] VITALS: BP 98/56
[2019-01-14 17:58] VITALS: BP 123/78
[2019-01-14 21:04] VITALS: BP 119/75
[2019-01-15 06:13] VITALS: BP 119/85
[2019-01-15 09:14] VITALS: BP 119/78
[2019-01-15 17:25] VITALS: BP 116/72
[2019-01-15 19:48] VITALS: BP 119/75
[2019-01-16 06:13] VITALS: BP 107/67
[2019-01-16 09:31] VITALS: BP 104/82
[2019-01-16 17:20] VITALS: BP 125/87
[2019-01-16 21:10] VITALS: BP 120/81
[2019-01-17 06:18] VITALS: BP 133/81
[2019-01-17 08:38] VITALS: BP 117/73
[2019-01-17 17:25] VITALS: BP 124/71
[2019-01-17 21:35] VITALS: BP 117/71
[2019-01-18 04:41] VITALS: BP 101/62
[2019-01-18 09:33] VITALS: BP 102/71
[2019-01-18 13:47] VITALS: BP 116/75
[2019-01-18 17:11] VITALS: BP 117/69
[2019-01-18 20:35] VITALS: BP 128/75
[2019-01-19 06:13] VITALS: BP 116/82
[2019-01-19 08:45] VITALS: BP 118/81
[2019-01-19 20:32] VITALS: BP 141/85
[2019-01-20 06:18] VITALS: BP 116/73
[2019-01-20 09:24] VITALS: BP 102/66
[2019-01-20 17:09] VITALS: BP 104/63
[2019-01-20 21:31] VITALS: BP 107/65
[2019-01-21 06:00] VITALS: BP 100/54
[2019-01-21 10:02] VITALS: BP 97/66
[2019-01-21 12:37] VITALS: BP 101/56
[2019-01-21 16:33] VITALS: BP 119/60
[2019-01-21 21:09] VITALS: BP 97/64
[2019-01-22 06:30] VITALS: BP 120/70
[2019-01-22 08:07] VITALS: BP 121/73
[2019-01-22 11:48] VITALS: BP 117/63
[2019-01-22 11:50] VITALS: BP 109/68
[2019-01-22 16:50] VITALS: BP 104/72
[2019-01-22 21:27] VITALS: BP 126/79
[2019-01-23 04:54] VITALS: BP 96/52
[2019-01-23 11:00] VITALS: BP 122/74
[2019-01-23 20:45] VITALS: BP 109/64
[2019-01-24 05:52] VITALS: BP 122/73
[2019-01-24 09:28] VITALS: BP 107/72
[2019-01-24 17:32] VITALS: BP 111/61
[2019-01-24 20:36] VITALS: BP 117/78
[2019-01-25 05:11] VITALS: BP 103/69
[2019-01-25 08:30] VITALS: BP 112/66
[2019-01-25 15:55] VITALS: BP 126/63
[2019-01-25 21:01] VITALS: BP 130/74
[2019-01-26 06:10] VITALS: BP 104/64
[2019-01-26 08:17] VITALS: BP 113/76
[2019-01-26 11:50] VITALS: BP 115/68
[2019-01-26 16:13] VITALS: BP 121/73
[2019-01-26 20:42] VITALS: BP 117/72
[2019-01-27 05:42] VITALS: BP 110/77
[2019-01-27 08:42] VITALS: BP 102/70
[2019-01-27 16:41] VITALS: BP 121/69
[2019-01-27 20:57] VITALS: BP 117/65
[2019-01-28 06:35] VITALS: BP 117/72
[2019-01-28 09:00] VITALS: BP 101/67
[2019-01-28 17:20] VITALS: BP 107/71
[2019-01-28 20:54] VITALS: BP 112/67
[2019-01-29 05:18] VITALS: BP 123/68
[2019-01-29 08:59] VITALS: BP 129/79
[2019-01-29 17:53] VITALS: BP 120/76
[2019-01-29 20:32] VITALS: BP 128/77
[2019-01-30 05:13] VITALS: BP 100/63
[2019-01-30 09:16] VITALS: BP 113/79
[2019-01-30 18:00] VITALS: BP 124/82
[2019-01-30 21:36] VITALS: BP 139/91
[2019-01-31 05:25] VITALS: BP 115/72
[2019-01-31 09:44] VITALS: BP 102/71
[2019-01-31 16:24] VITALS: BP 120/73
[2019-01-31 20:47] VITALS: BP 104/74
[2019-02-01 05:43] VITALS: BP 115/73
[2019-02-01 09:18] VITALS: BP 117/74
[2019-02-01 17:38] VITALS: BP 113/73
[2019-02-01 20:58] VITALS: BP 116/65
[2019-02-02 06:03] VITALS: BP 109/58
[2019-02-02 09:04] VITALS: BP 112/73
[2019-02-02 17:56] VITALS: BP 117/79
[2019-02-02 21:45] VITALS: BP 123/81
[2019-02-03 06:02] VITALS: BP 109/58
[2019-02-03 10:11] VITALS: BP 107/70
[2019-02-03 17:23] VITALS: BP 109/75
[2019-02-03 21:31] VITALS: BP 107/72
[2019-02-04 06:03] VITALS: BP 101/65
[2019-02-04 08:35] VITALS: BP 124/87
[2019-02-04 16:41] VITALS: BP 106/67
[2019-02-04 21:20] VITALS: BP 119/78
[2019-02-05 05:16] VITALS: BP 122/76
[2019-02-05 08:14] VITALS: BP 113/78
[2019-02-05 12:16] VITALS: BP 120/73
[2019-02-05 16:28] VITALS: BP 116/72
[2019-02-05 20:45] VITALS: BP 116/75
[2019-02-06 04:55] VITALS: BP 123/83
[2019-02-06 09:49] VITALS: BP 122/78
[2019-02-06 16:45] VITALS: BP 113/77
[2019-02-06 19:50] VITALS: BP 109/72
[2019-02-07 04:46] VITALS: BP 106/78
[2019-02-07 09:01] VITALS: BP 123/84
[2019-02-07 16:49] VITALS: BP 119/77
[2019-02-07 20:58] VITALS: BP 124/80
[2019-02-08 05:42] VITALS: BP 122/78
[2019-02-08 09:20] VITALS: BP 131/73
[2019-02-08 17:07] VITALS: BP 98/62
[2019-02-08 20:49] VITALS: BP 122/79
[2019-02-09 05:24] VITALS: BP 109/70
[2019-02-09 08:38] VITALS: BP 110/74
[2019-02-09 16:39] VITALS: BP 136/83
[2019-02-09 20:53] VITALS: BP 112/82
[2019-02-10 06:03] VITALS: BP 122/82
[2019-02-10 08:20] VITALS: BP 107/81
[2019-02-10 12:15] VITALS: BP 110/71
[2019-02-10 16:44] VITALS: BP 114/70
[2019-02-10 20:39] VITALS: BP 103/65
[2019-02-11 05:53] VITALS: BP 116/77
[2019-02-11 09:00] VITALS: BP 114/78
[2019-02-11 17:12] VITALS: BP 125/78
[2019-02-11 20:07] VITALS: BP 113/75
[2019-02-12 06:37] VITALS: BP 136/84
[2019-02-12 09:16] VITALS: BP 123/84
[2019-02-12 17:59] VITALS: BP 123/78
[2019-02-12 20:33] VITALS: BP 112/74
[2019-02-13 05:29] VITALS: BP 123/80
[2019-02-13 16:13] VITALS: BP 118/78
[2019-02-13 23:03] VITALS: BP 114/73
[2019-02-14 05:20] VITALS: BP 96/57
[2019-02-14 08:30] VITALS: BP 96/62
[2019-02-14 17:14] VITALS: BP 121/78
[2019-02-14 20:20] VITALS: BP 97/61
[2019-02-15 05:06] VITALS: BP 109/63
[2019-02-15 08:43] VITALS: BP 120/80
[2019-02-15 17:40] VITALS: BP 116/70
[2019-02-15 19:35] VITALS: BP 106/73
[2019-02-16 05:57] VITALS: BP 124/86
[2019-02-16 09:04] VITALS: BP 111/81
[2019-02-16 17:23] VITALS: BP 108/73
[2019-02-16 21:43] VITALS: BP 116/81
[2019-02-17 05:18] VITALS: BP 133/80
[2019-02-17 09:23] VITALS: BP 117/80
[2019-02-17 17:53] VITALS: BP 130/73
[2019-02-17 20:52] VITALS: BP 114/65
[2019-02-18 05:47] VITALS: BP 134/82
[2019-02-18 09:29] VITALS: BP 121/82
[2019-02-18 16:03] VITALS: BP 96/59
[2019-02-18 19:53] VITALS: BP 118/77
[2019-02-19 05:37] VITALS: BP 125/85
[2019-02-19 09:14] VITALS: BP 116/69
[2019-02-19 17:06] VITALS: BP 106/69
[2019-02-19 19:54] VITALS: BP 102/74
[2019-02-20 04:37] VITALS: BP 140/85
[2019-02-20 08:47] VITALS: BP 109/78
[2019-02-20 17:11] VITALS: BP 103/67
[2019-02-20 21:21] VITALS: BP 110/71
[2019-02-21 05:53] VITALS: BP 148/85
[2019-02-21 09:36] VITALS: BP 145/80
[2019-02-21 16:28] VITALS: BP 140/69
[2019-02-21 19:10] VITALS: BP 118/76
[2019-02-22 05:57] VITALS: BP 124/82
[2019-02-22 08:30] VITALS: BP 133/82
[2019-02-22 17:02] VITALS: BP 126/73
[2019-02-22 21:31] VITALS: BP 106/69
[2019-02-23 05:08] VITALS: BP 154/92
[2019-02-23 08:14] VITALS: BP 117/96
[2019-02-23 16:30] VITALS: BP 114/75
[2019-02-23 20:49] VITALS: BP 133/87
[2019-02-24 05:38] VITALS: BP 139/79
[2019-02-24 08:39] VITALS: BP 104/81
[2019-02-24 16:19] VITALS: BP 112/67
[2019-02-25 09:05] VITALS: BP 145/101
[2019-02-25 16:57] VITALS: BP 118/82
[2019-02-25 20:46] VITALS: BP 123/84
[2019-02-26 04:44] VITALS: BP 107/75
[2019-02-26 09:20] VITALS: BP 150/81
[2019-02-26 18:04] VITALS: BP 136/82
[2019-02-26 21:28] VITALS: BP 124/73
[2019-02-27 05:12] VITALS: BP 130/82
[2019-02-27 08:30] VITALS: BP 121/88; BP 127/91
[2019-02-27 16:18] VITALS: BP 121/88
[2019-02-27 20:51] VITALS: BP 116/79
[2019-02-28 06:13] VITALS: BP 135/83
[2019-02-28 09:11] VITALS: BP 142/92
[2019-02-28 17:22] VITALS: BP 105/68
[2019-02-28 20:13] VITALS: BP 95/64
[2019-03-01 04:51] VITALS: BP 125/83
[2019-03-01 09:26] VITALS: BP 129/90
[2019-03-01 09:31] VITALS: BP 125/84
[2019-03-01 17:00] VITALS: BP 108/72
[2019-03-01 20:08] VITALS: BP 93/64
[2019-03-02 05:30] VITALS: BP 141/84
[2019-03-02 09:46] VITALS: BP 132/92
[2019-03-02 16:04] VITALS: BP 132/92
== END 2019-03-02 17:06 | DRG 190 ==
LOC: ED 20:30 → DU 22:50 → MU 22:50 → DU 23:43 → MU 08-10 09:50
PROVIDERS: Emergency Medicine; Internal Medicine; ADMIT Family Medicine
PROC: 0HBRXZZ Excision of Toe Nail, External Approach (ICD-10-PCS; principal; 2019-02-10)
PROC: 0HBRXZZ Excision of Toe Nail, External Approach (ICD-10-PCS; 2019-02-10)
PROC: 0HBRXZZ Excision of Toe Nail, External Approach (ICD-10-PCS; 2019-02-22)
PROC: 0HBRXZZ Excision of Toe Nail, External Approach (ICD-10-PCS; 2019-02-22)
PROC: 0HBRXZZ Excision of Toe Nail, External Approach (ICD-10-PCS; 2019-02-22)
PROC: 0HBRXZZ Excision of Toe Nail, External Approach (ICD-10-PCS; 2019-02-22)
PROC: 0HBRXZZ Excision of Toe Nail, External Approach (ICD-10-PCS; 2019-02-22)
PROC: 0HBRXZZ Excision of Toe Nail, External Approach (ICD-10-PCS; 2019-02-22)
PROC: 0HBRXZZ Excision of Toe Nail, External Approach (ICD-10-PCS; 2019-02-22)
PROC: 0HBRXZZ Excision of Toe Nail, External Approach (ICD-10-PCS; 2019-02-22)
DX: I21.4 Non-ST elevation (NSTEMI) myocardial infarction (principal); E44.1 Mild protein-calorie malnutrition; F03.90 Unspecified dementia, unspecified severity, without behavioral disturbance, psychotic disturbance, mood disturbance, and anxiety; F10.229 Alcohol dependence with intoxication, unspecified; E66.9 Obesity, unspecified; B35.1 Tinea unguium; E87.6 Hypokalemia; M20.11 Hallux valgus (acquired), right foot; Y90.9 Presence of alcohol in blood, level not specified; Z59.0 Homelessness; Z68.34 Body mass index [BMI] 34.0-34.9, adult
CPT/HCPCS: 82962; 83880; 84439; 87491; 87591; 97110-GP; 97116-GP; 97530-GP; G0480; J1650; J3480; J7030; Q0092